=== PATIENT | male | born 1950 | race Caucasian/White ===

== ENCOUNTER 2024-06-14 13:03 | Day surgery (SDC) | payer MEDICARE, BC ==
[2024-06-14] MEDS: Polymyxin B/Trimethoprim 10 ML Bottle EYERT SCH (14:24)
[2024-06-14] MEDS: Brimonidine 0.2% Ophth Soln 5 ML Bottle EYERT SCH (14:30)
[2024-06-14] MEDS: Phenylephrine 2.5% Ophth Soln 2 ML Bot EYERT SCH (14:34)
[2024-06-14] MEDS: Tropicamide 1% Ophth Soln 3 ML Bottle EYERT SCH (14:39)
[2024-06-14] MEDS: Tetracaine HCl/PF 0.5% 4 ML Bottle EYEBOTH SCH (15:32)
[2024-06-14] MEDS: Lidocaine 1% PF 2 ML SDV INJECT SCH (15:55)
[2024-06-14] MEDS: Cefuroxime 10 MG/ML SYRINGE EYERT SCH (16:09)
[2024-06-14] MEDS: Pilocarpine 4% Ophth Soln 15 ML Bot EYERT SCH (16:10)
== END 2024-06-14 16:16 ==
LOC: JD.SDS 13:03
PROVIDERS: ATTEND Ophthalmology
DX: H25.811 Combined forms of age-related cataract, right eye (principal)
CPT/HCPCS: 66984; A9270; J0697; 00142; 99100; J3490; V2632